=== PATIENT | female | born 1955 | race Caucasian/White ===

== ENCOUNTER 2016-05-21 11:52 | Emergency (ER) | payer BC, MEDICARE ==
[2016-05-21 12:22] VITALS: BP 144/83
[2016-05-21] MEDS ORDERED: Albuterol 0.083% 2.5 MG/3 ML Neb Soln NEB ONE (12:48)
--- NOTE | 2016-05-21 12:49 | EDM.PDOC ---
ED HPI GENERAL MEDICAL PROBLEM - General Chief Complaint: General Stated Complaint: LUNGS FULL,HEADACHE Time Seen by Provider: 05/21/16 12:49 Source of Information: Reports: Patient History Limitations: Reports: No limitations - History of Present Illness INITIAL COMMENTS - FREE TEXT/NARRATIVE: pt arrived feeling sob and coughing up some morales to green sputum. Onset: gradual Duration: Day(s):, Getting worse, Other ( feeling sob) Location: Reports: chest Associated Symptoms: Reports: cough, loss of appetite, shortness of breath - Related Data Allergies Allergy/AdvReac Type Severity Reaction Status Date / Time erythromycin base Allergy Vomiting Verified 05/21/16 12:12 morphine Allergy Vomiting Verified 05/21/16 12:12 pregabalin [From Lyrica] Allergy Confusion Verified 05/21/16 12:12 Sulfa (Sulfonamide Allergy Vomiting Verified 05/21/16 12:12 Antibiotics) Home Meds: Home Meds Aspirin [Halfprin] 1 tab PO DAILY 05/21/16 [History] Fluticasone Propionate [Flonase] 2 spray KAMLA BID 05/21/16 [History] Hydrocodone/Acetaminophen [Hydrocodon-Acetaminophen 5-325] 2 tab PO Q6H [History] LORazepam [Ativan] 1 tab PO DAILY PRN 05/21/16 [History] LORazepam [Ativan] 2 tab PO BEDTIME 05/21/16 [History] Metoprolol Tartrate [Metoprolol Tartrate] 1 tab PO BID 05/21/16 [History] Omeprazole 1 tab PO BID 05/21/16 [History] Sertraline HCl [Zoloft] 200 mg PO QAM 05/21/16 [History] clonazePAM [Clonazepam] 1 mg PO TID 05/21/16 [History] Past Medical History HEENT History: Reports: Allergic rhinitis Cardiovascular History: Reports: Hypertension Genitourinary History: Reports: UTI, recurrent Musculoskeletal History: Reports: Back pain, chronic, Fracture, Fibromyalgia Psychiatric History: Reports: Anxiety, Depression Dermatologic History: Reports: Psoriasis - Past Surgical History HEENT Surgical History: Reports: Tonsillectomy GI Surgical History: Reports: Appendectomy, Lysis of adhesions Female Surgical History: Reports: Hysterectomy Social & Family History - Tobacco Use Smoking Status *Q: Current Every Day Smoker Years of Tobacco use: 42 Packs/Tins Daily: 1 Second Hand Smoke Exposure: Yes - Caffeine Use Caffeine Use: Reports: Coffee - Recreational Drug Use Recreational Drug Use: No ED ROS GENERAL - Review of Systems Review Of Systems: See Below Constitutional: Reports: chills, malaise, weakness HEENT: Reports: Sinus problem Respiratory: Reports: Shortness of Breath, Cough Cardiovascular: Reports: No symptoms Endocrine: Reports: no symptoms GI/Abdominal: Reports: No symptoms : Reports: no symptoms Musculoskeletal: Reports: no symptoms Skin: Reports: no symptoms Neurological: Reports: No Symptoms Psychiatric: Reports: No symptoms ED EXAM, GENERAL - Physical Exam Exam: See Below Free Text/Narrative:: pt arrived feeling sob and coughing up thick mucous that is colored. Exam Limited By: No limitations General Appearance: mild distress Ears: normal TMs Nose: normal inspection Throat/Mouth: Normal inspection Head: atraumatic Neck: normal inspection Respiratory/Chest: decreased breath sounds, rhonchi Cardiovascular: regular rate, rhythm, tachycardia GI/Abdominal: soft, non tender (Female) Exam: Deferred Rectal (Female) Exam: Deferred Back Exam: normal inspection Extremities: normal inspection Neurological: alert, oriented Psychiatric: normal affect, anxious Course - Vital Signs Last Recorded V/S: Last Vital Signs Temp 37.4 C 05/21/16 12:33 Pulse 101 H 05/21/16 12:33 Resp 16 05/21/16 12:21 BP 144/83 H 05/21/16 12:33 Pulse Ox 97 05/21/16 12:33 - Orders/Labs/Meds Labs: Laboratory Tests 05/21/16 05/21/16 05/21/16 Range/Units 12:57 12:57 12:57 WBC 10.8 (4.5-11.0) K/uL RBC 4.74 (3.30-5.50) M/uL Hgb 14.0 (12.0-15.0) g/dL Hct 42.0 (36.0-48.0) % MCV 89 (80-98) fL MCH 30 (27-31) pg MCHC 33 (32-36) % Plt Count 465 H (150-400) K/uL Neut % (Auto) 58 (36-66) % Lymph % (Auto) 33 (24-44) % [place] % (Auto) 7 H (2-6) % Eos % (Auto) 1 L (2-4) % Baso % (Auto) 1 (0-1) % Sodium 139 L (140-148) mmol/L Potassium 5.0 (3.6-5.2) mmol/L Chloride 102 (100-108) mmol/L Carbon Dioxide 29 (21-32) mmol/L Anion Gap 13.0 (5.0-14.0) mmol/L BUN 9 (7-18) mg/dL Creatinine 0.8 (0.6-1.0) mg/dL Est Cr Clr Drug Dosing 58.99 mL/min Estimated GFR (MDRD) > 60 (>60) Glucose 116 H (74-106) mg/dL Calcium 9.2 (8.5-10.1) mg/dL Total Bilirubin 0.2 (0.2-1.0) mg/dL AST 17 (15-37) U/L ALT 21 (12-78) U/L Alkaline Phosphatase 70 (46-116) U/L C-Reactive Protein 1.96 H (0.0-0.3) mg/dL Total Protein 7.9 (6.4-8.2) g/dL Albumin 3.2 L (3.4-5.0) g/dL Globulin 4.7 H (2.3-3.5) g/dL Albumin/Globulin Ratio 0.7 L (1.2-2.2) Urine Color Urine Appearance Urine pH (4.5-8.0) Ur Specific [place] (1.008-1.030) Urine Protein (NEGATIVE) mg/dL Urine Glucose (UA) (NEGATIVE) mg/dL Urine Ketones (NEGATIVE) mg/dL Urine Occult Blood (NEGATIVE) Urine Nitrite (NEGATIVE) Urine Bilirubin (NEGATIVE) Urine Urobilinogen (NORMAL) mg/dL Ur Leukocyte Esterase (NEGATIVE) Urine RBC (0-5) Urine WBC (0-5) Ur Epithelial Cells Amorphous Sediment Urine Bacteria Urine Mucus 05/21/16 Range/Units 13:34 WBC (4.5-11.0) K/uL RBC (3.30-5.50) M/uL Hgb (12.0-15.0) g/dL Hct (36.0-48.0) % MCV (80-98) fL MCH (27-31) pg MCHC (32-36) % Plt Count (150-400) K/uL Neut % (Auto) (36-66) % Lymph % (Auto) (24-44) % [place] % (Auto) (2-6) % Eos % (Auto) (2-4) % Baso % (Auto) (0-1) % Sodium (140-148) mmol/L Potassium (3.6-5.2) mmol/L Chloride (100-108) mmol/L Carbon Dioxide (21-32) mmol/L Anion Gap (5.0-14.0) mmol/L BUN (7-18) mg/dL Creatinine (0.6-1.0) mg/dL Est Cr Clr Drug Dosing mL/min Estimated GFR (MDRD) (>60) Glucose (74-106) mg/dL Calcium (8.5-10.1) mg/dL Total Bilirubin (0.2-1.0) mg/dL AST (15-37) U/L ALT (12-78) U/L Alkaline Phosphatase (46-116) U/L C-Reactive Protein (0.0-0.3) mg/dL Total Protein (6.4-8.2) g/dL Albumin (3.4-5.0) g/dL Globulin (2.3-3.5) g/dL Albumin/Globulin Ratio (1.2-2.2) Urine Color Yellow Urine Appearance Turbid Urine pH 8.0 (4.5-8.0) Ur Specific [place] 1.010 (1.008-1.030) Urine Protein Negative (NEGATIVE) mg/dL Urine Glucose (UA) Normal (NEGATIVE) mg/dL Urine Ketones Negative (NEGATIVE) mg/dL Urine Occult Blood Negative (NEGATIVE) Urine Nitrite Positive H (NEGATIVE) Urine Bilirubin Negative (NEGATIVE) Urine Urobilinogen Normal (NORMAL) mg/dL Ur Leukocyte Esterase Negative (NEGATIVE) Urine RBC Not seen (0-5) Urine WBC 0-5 (0-5) Ur Epithelial Cells Rare Amorphous Sediment Not seen Urine Bacteria Many Urine Mucus Not seen Meds: Medications Discontinued Medications Generic Name Dose Route Start Last Admin Trade Name Freq PRN Reason Stop Dose Admin Albuterol 2.5 mg 05/21/16 12:48 05/21/16 13:33 Proventil Neb Soln NEB 05/21/16 12:49 2.5 mg ONETIME ONE Administration - Re-Assessments/Exams Free Text/Narrative Re-Assessment/Exam: 05/21/16 13:42 pt has been sob and coughing alot. She is raising thick green sputum. 05/24/16 11:31 Her chest xray does not reveal a infiltrate. Her wbc was not significantly elevated. Her sputum did look quite purulent. This was cultured. Departure - Departure Time of Disposition: 13:43 Disposition: Home, Self-Care 01 Condition: fair Clinical Impression: Bronchitis Instructions: Acute Bronchitis Referrals: PCP,None [Primary Care Provider] - Forms: ED Department Discharge Care Plan Goals: will notify of sputum culture, push fluids, cool mist humidifier, work with smoking cessation, augmentin 875 bid, albuterol inhaler 2 puffs q6h, cont with polinaitussin dm for the cough.
--- NOTE | 2016-05-21 14:06 | CR ---
The visualized sinuses appear clear.
--- NOTE | 2016-05-21 14:10 | CR ---
Chest 2V HISTORY: No Clinical Info FINDINGS: Heart size within normal limits. Pulmonary vasculature within normal limits. No evidence f or focal consolidation or cardiopulmonary process. IMPRESSION: No radiographic evidence for acute cardiopulmonary process.
== END 2016-05-21 14:04 | disposition home or self-care (01) ==
LOC: JP.ED 11:52
DX: J40 Bronchitis, not specified as acute or chronic (principal); I10 Essential (primary) hypertension; Z87.440 Personal history of urinary (tract) infections; F41.9 Anxiety disorder, unspecified; F32.9 Major depressive disorder, single episode, unspecified; F17.210 Nicotine dependence, cigarettes, uncomplicated; Z98.890 Other specified postprocedural states; Z90.710 Acquired absence of both cervix and uterus; Z79.899 Other long term (current) drug therapy; Z90.49 Acquired absence of other specified parts of digestive tract; Z88.5 Allergy status to narcotic agent; Z88.1 Allergy status to other antibiotic agents; Z88.2 Allergy status to sulfonamides; Z79.82 Long term (current) use of aspirin
CPT/HCPCS: 36415; 70210; 70210-26; 71020; 71020-26; 80053; 81001; 85025; 86140; 87070; 87077; 87186; 87205; 99283; 99285-25

== ENCOUNTER 2016-06-11 11:37 | Emergency (ER) | payer MEDICARE ==
[2016-06-11 12:15] VITALS: BP 125/89
--- NOTE | 2016-06-11 12:36 | EDM.PDOC ---
ED HISTORY OF PRESENT ILLNESS - General Chief Complaint: Respiratory Problem Stated Complaint: breathing issues Time Seen by Provider: 06/11/16 12:18 Source: Reports: Patient, Old records, RN notes reviewed History Limitations: Reports: No limitations - History of Present Illness INITIAL COMMENTS - FREE TEXT/NARRATIVE: 60-year-old female presents emergency department day complaint of shortness of breath and cough she does produce sputum last sputum culture approximately 2 weeks ago demonstrated Escherichia coli, Klebsiella and Haemophilus. She states she felt better for a couple days and then her symptoms returned with shortness of breath sputum production and low-grade fevers she has not followed up with her primary care provider - Related Data Allergies/ADRs: Allergies Allergy/AdvReac Type Severity Reaction Status Date / Time erythromycin base Allergy Vomiting Verified 06/11/16 12:07 morphine Allergy Vomiting Verified 06/11/16 12:07 pregabalin [From Lyrica] Allergy Confusion Verified 06/11/16 12:07 Sulfa (Sulfonamide Allergy Vomiting Verified 06/11/16 12:07 Antibiotics) Home Meds: Home Meds Aspirin [Halfprin] 1 tab PO DAILY 05/21/16 [History] Fluticasone Propionate [Flonase] 2 spray KAMLA BID 05/21/16 [History] Hydrocodone/Acetaminophen [Hydrocodon-Acetaminophen 5-325] 2 tab PO Q6H [History] LORazepam [Ativan] 1 tab PO DAILY PRN 05/21/16 [History] LORazepam [Ativan] 2 tab PO BEDTIME 05/21/16 [History] Metoprolol Tartrate [Metoprolol Tartrate] 1 tab PO BID 05/21/16 [History] Omeprazole 1 tab PO BID 05/21/16 [History] Sertraline HCl [Zoloft] 200 mg PO QAM 05/21/16 [History] clonazePAM [Clonazepam] 1 mg PO TID 05/21/16 [History] Past Medical History HEENT History: Reports: Allergic rhinitis Cardiovascular History: Reports: Hypertension Genitourinary History: Reports: UTI, recurrent Musculoskeletal History: Reports: Back pain, chronic, Fracture, Fibromyalgia Psychiatric History: Reports: Anxiety, Depression Dermatologic History: Reports: Psoriasis - Past Surgical History HEENT Surgical History: Reports: Tonsillectomy Cardiovascular Surgical History: Reports: None GI Surgical History: Reports: Appendectomy, Lysis of adhesions Female Surgical History: Reports: Hysterectomy Social & Family History - Tobacco Use Smoking Status *Q: Current Every Day Smoker Years of Tobacco use: 40 Packs/Tins Daily: 0.5 Second Hand Smoke Exposure: Yes - Caffeine Use Caffeine Use: Reports: Coffee - Recreational Drug Use Recreational Drug Use: No ED ROS GENERAL - Review of Systems Review Of Systems: See Below Constitutional: Reports: fever, chills HEENT: Reports: No symptoms Respiratory: Reports: Shortness of Breath, Cough, Sputum Cardiovascular: Reports: No symptoms GI/Abdominal: Reports: No symptoms : Reports: no symptoms Musculoskeletal: Reports: no symptoms Skin: Reports: no symptoms ED EXAM, GENERAL - Physical Exam Exam: See Below Free Text/Narrative:: General: Female, not in any distress, alert and oriented x3 HEENT: head is atraumatic normocephalic, eyes pupils equal round reactive to light, sclera clear no conjunctivitis appreciated. Ears tympanic membranes clear and morales landmarks and light reflex are present bilaterally canals are clear. Nose no septal deviation, nares are clear, no blood present. Mouth mucosa is moist and pink no erythema or exudate noted in soft palate, tongue is midline uvula is midline, dentition is intact. Neck: Supple no thyromegaly no tracheal deviation. Nodes: Cervical nodes subclavicular nodes nontender no palpable lymphadenopathy noted. Lungs: Breath sounds are distant I don't appreciate any adventitious noises CV: Regular rate and rhythm S1 and S2 appreciated no murmurs rubs or gallops noted. Abdomen: Soft, nontender, no palpable masses or organomegaly appreciated, no distention no guarding bowel sounds are present, . Neuro: Cranial nerves II through XII grossly intact Course - Vital Signs Last Recorded V/S: Last Vital Signs Temp 99.0 F 06/11/16 12:12 Pulse 97 06/11/16 12:12 Resp 16 06/11/16 12:12 BP 125/89 06/11/16 12:12 Pulse Ox 93 L 06/11/16 12:12 - Orders/Labs/Meds Labs: Laboratory Tests 06/11/16 06/11/16 06/11/16 Range/Units 12:38 12:38 12:38 WBC 11.4 H (4.5-11.0) K/uL RBC 5.03 (3.30-5.50) M/uL Hgb 14.9 (12.0-15.0) g/dL Hct 44.2 (36.0-48.0) % MCV 88 (80-98) fL MCH 30 (27-31) pg MCHC 34 (32-36) % Plt Count 380 (150-400) K/uL Neut % (Auto) 63 (36-66) % Lymph % (Auto) 27 (24-44) % [place] % (Auto) 8 H (2-6) % Eos % (Auto) 1 L (2-4) % Baso % (Auto) 1 (0-1) % ESR 41 H (0-25) mm/hr Sodium 138 L (140-148) mmol/L Potassium 4.4 (3.6-5.2) mmol/L Chloride 102 (100-108) mmol/L Carbon Dioxide 26 (21-32) mmol/L Anion Gap 14.4 H (5.0-14.0) mmol/L BUN 7 (7-18) mg/dL Creatinine 0.8 (0.6-1.0) mg/dL Est Cr Clr Drug Dosing 59.25 mL/min Estimated GFR (MDRD) > 60 (>60) Glucose 122 H (74-106) mg/dL Lactic Acid (0.4-2.0) mmol/L Calcium 9.0 (8.5-10.1) mg/dL Total Bilirubin 0.2 (0.2-1.0) mg/dL AST 21 (15-37) U/L ALT 26 (12-78) U/L Alkaline Phosphatase 94 (46-116) U/L Troponin I < 0.017 (0.000-0.056) ng/mL Poe-Y-Cdrlhqgzthd Pept (5-125) pg/mL Total Protein 8.2 (6.4-8.2) g/dL Albumin 3.4 (3.4-5.0) g/dL Globulin 4.8 H (2.3-3.5) g/dL Albumin/Globulin Ratio 0.7 L (1.2-2.2) 06/11/16 06/11/16 Range/Units 12:38 12:38 WBC (4.5-11.0) K/uL RBC (3.30-5.50) M/uL Hgb (12.0-15.0) g/dL Hct (36.0-48.0) % MCV (80-98) fL MCH (27-31) pg MCHC (32-36) % Plt Count (150-400) K/uL Neut % (Auto) (36-66) % Lymph % (Auto) (24-44) % [place] % (Auto) (2-6) % Eos % (Auto) (2-4) % Baso % (Auto) (0-1) % ESR (0-25) mm/hr Sodium (140-148) mmol/L Potassium (3.6-5.2) mmol/L Chloride (100-108) mmol/L Carbon Dioxide (21-32) mmol/L Anion Gap (5.0-14.0) mmol/L BUN (7-18) mg/dL Creatinine (0.6-1.0) mg/dL Est Cr Clr Drug Dosing mL/min Estimated GFR (MDRD) (>60) Glucose (74-106) mg/dL Lactic Acid 1.3 (0.4-2.0) mmol/L Calcium (8.5-10.1) mg/dL Total Bilirubin (0.2-1.0) mg/dL AST (15-37) U/L ALT (12-78) U/L Alkaline Phosphatase (46-116) U/L Troponin I (0.000-0.056) ng/mL Pic-U-Hezfdirvhsg Pept 82 (5-125) pg/mL Total Protein (6.4-8.2) g/dL Albumin (3.4-5.0) g/dL Globulin (2.3-3.5) g/dL Albumin/Globulin Ratio (1.2-2.2) Departure - Departure Time of Disposition: 13:40 Disposition: Home, Self-Care 01 Condition: good Clinical Impression: Chronic bronchitis Qualifiers: Chronic bronchitis type: mucopurulent Qualified Code(s): J41.1 - Mucopurulent chronic bronchitis Forms: ED Department Discharge Additional Instructions: Take full course of antibiotics, take full course of prednisone, continue to use her albuterol previously prescribed, Please followup with your primary care provider in 5-7 days if not better, please call return to the emergency department with worsening of symptoms. - Assessment/Plan Plan: Assessment Acuity = [acute on chronic Site and laterality = bronchitis complicated by patient with known history of tobacco abuse and dependence Etiology = suspicious for underlying chronic obstructive pulmonary disease Manifestations = cough, sputum production Location of injury = home Lab values = WBC elevated at 11.4 consistent with a leukocytosis, sodium low at 138 consistent hyponatremia, troponin normal at 0.017 BNP normal at 82 CT scan of the chest demonstrates no call pneumonia however there is a 5 mm nodule located in the right lower lobe of unclear etiology which needs to be followed up in 6 months Plan I did review blood work and CT scan results with her because of suspicious underlying chronic obstructive pulmonary disease she has not had any spirometry done I am going to start her on doxycycline 100 mg by mouth twice a day x7 days , in combination with prednisone 20 mg once a day for 5 days follow up with primary care in 5-7 days for reevaluation Patient was in agreement with the plan all questions were answered, they were instructed to return to the emergency department or call for worsening symptoms. This note was dictated using [employer] voice recognition software please call with any questions.
--- NOTE | 2016-06-11 13:21 | CT ---
Chest wo Cont HISTORY: recurrent pulmonary infection Axial spiral noncontrasted CT scan of the chest was obtained along with coronal and MIP reconstructi ons. Comparison plain radiographs are dated 05/21/2016. FINDINGS: There is mild scarring posteriorly at the right apex. Remainder the chest is clear. No acu te infiltrate is identified. I see no significant emphysematous changes. No endobronchial lesion can be seen. Centered on axial image 51 and coronal image 54 there is a 5 mm noncalcified pulmonary nodule right lower lobe. No other pulmonary mass or nodule is seen. There is no hilar or mediastinal mass or adenopathy. Heart size is within normal limits. Mild athero sclerotic calcification can be seen in aortic arch. There is no pleural fluid or chest wall abnormal ity. Visualized upper abdominal structures are unremarkable. IMPRESSION: 1. No acute infiltrate or other acute chest abnormality is identified. Very mild patchy apical scarr ing is noted on the right. Atherosclerotic aorta is noted. 2. There is a 5 mm noncalcified pulmonary nodule right lower lobe. Follow-up is recommended as per F magalischner guidelines. Findings were discussed with Officer. In the emergency department at 1314 hours. Total DLP 272 mGycm
== END 2016-06-11 14:05 | disposition home or self-care (01) ==
LOC: JP.ED 11:37
DX: J41.1 Mucopurulent chronic bronchitis (principal); I10 Essential (primary) hypertension; F32.9 Major depressive disorder, single episode, unspecified; F41.9 Anxiety disorder, unspecified; F17.210 Nicotine dependence, cigarettes, uncomplicated; Z90.49 Acquired absence of other specified parts of digestive tract; Z90.710 Acquired absence of both cervix and uterus; Z79.82 Long term (current) use of aspirin; Z79.899 Other long term (current) drug therapy; Z88.1 Allergy status to other antibiotic agents; Z88.2 Allergy status to sulfonamides; Z88.5 Allergy status to narcotic agent; Z88.8 Allergy status to other drugs, medicaments and biological substances
CPT/HCPCS: 36415; 71250; 71250-26; 80053; 83605; 83880; 84484; 85025; 85651; 99283; 99285

== ENCOUNTER 2019-08-12 20:16 | Emergency (ER) | payer MEDICARE ==
[2019-08-12 20:44] VITALS: PULSE 81
[2019-08-12 20:56] VITALS: BP 178/99
--- NOTE | 2019-08-12 21:13 | EDM.PDOC ---
ED HPI GENERAL MEDICAL PROBLEM - General Chief Complaint: General Stated Complaint: FALL OFF LADDER Time Seen by Provider: 08/12/19 20:38 Source of Information: Reports: Patient History Limitations: Reports: No Limitations - History of Present Illness INITIAL COMMENTS - FREE TEXT/NARRATIVE: 63 yo male presents to ER after falling while replacing a light bulb and hitting her head on the sidewalk. She recalls the entire event, No LOC. she is not nauseated nor did she vomit following the injury. She has a mild headache. denies vision disturbance. generally healthy. no other injuries sustained in the fall Posterior Head Pain Score (Numeric/FACES): 5 - Related Data Allergies Allergy/AdvReac Type Severity Reaction Status Date / Time erythromycin base Allergy Vomiting Verified 08/12/19 20:44 morphine Allergy Vomiting Verified 08/12/19 20:44 pregabalin [From Lyrica] Allergy Confusion Verified 08/12/19 20:44 Sulfa (Sulfonamide Allergy Vomiting Verified 08/12/19 20:44 Antibiotics) Home Meds: Home Meds Aspirin [Halfprin] 1 tab PO DAILY 05/21/16 [History] Fluticasone Propionate [Flonase] 2 spray KAMLA BID 05/21/16 [History] LORazepam [Ativan] 1 tab PO DAILY PRN 05/21/16 [History] LORazepam [Ativan] 2 tab PO BEDTIME 05/21/16 [History] Metoprolol Tartrate 1 tab PO BID 05/21/16 [History] Omeprazole 1 tab PO BID 05/21/16 [History] Sertraline HCl [Zoloft] 200 mg PO QAM 05/21/16 [History] clonazePAM [Clonazepam] 1 mg PO TID 05/21/16 [History] Past Medical History HEENT History: Reports: Allergic Rhinitis Cardiovascular History: Reports: Hypertension Gastrointestinal History: Reports: None Genitourinary History: Reports: UTI, Recurrent Musculoskeletal History: Reports: Back Pain, Chronic, Fracture, Fibromyalgia Psychiatric History: Reports: Anxiety, Depression Dermatologic History: Reports: Psoriasis - Infectious Disease History Infectious Disease History: Reports: Chicken Pox, Measles - Past Surgical History GI Surgical History: Reports: Appendectomy, Lysis of Adhesions Social & Family History - Tobacco Use Smoking Status *Q: Current Every Day Smoker Years of Tobacco use: 45 Packs/Tins Daily: 1 Used Tobacco, but Quit: No Second Hand Smoke Exposure: Yes - Caffeine Use Caffeine Use: Reports: Coffee - Recreational Drug Use Recreational Drug Use: No ED ROS GENERAL - Review of Systems Review Of Systems: See Below Constitutional: Denies: Fever, Chills, Fatigue Respiratory: Denies: Shortness of Breath Cardiovascular: Denies: Chest Pain GI/Abdominal: Denies: Abdominal Pain, Diarrhea, Nausea, Vomiting ED EXAM, GENERAL - Physical Exam Exam: See Below Exam Limited By: No Limitations General Appearance: Alert, WD/WN, No Apparent Distress Eye Exam: Bilateral Eye: EOMI, PERRL Ears: Normal External Exam Throat/Mouth: Normal Inspection, Normal Lips, Normal Teeth, Normal Gums Head: Normocephalic, Other (edema to the area of inpact, abrasion) Neck: Normal Inspection, Supple, Non-Tender, Full Range of Motion. No: Lymphadenopathy (R), Lymphadenopathy (L) Respiratory/Chest: No Respiratory Distress, Lungs Clear, Normal Breath Sounds, No Accessory Muscle Use, Chest Non-Tender. No: Crackles, Rhonchi, Wheezing Cardiovascular: Normal Peripheral Pulses, Regular Rate, Rhythm, No Murmur Neurological: Alert, Oriented, CN II-XII Intact, Normal Cognition, Normal Gait, Normal Reflexes, No Motor/Sensory Deficits Psychiatric: Normal Affect, Normal Mood Skin Exam: Warm, Dry, Intact, Normal Color Course - Vital Signs Last Recorded V/S: Last Vital Signs Temp 36.7 C 08/12/19 20:43 Pulse 81 08/12/19 20:43 Resp 16 08/12/19 20:43 BP 178/99 H 08/12/19 20:43 Pulse Ox 97 08/12/19 20:43 Departure - Departure Time of Disposition: 21:10 Disposition: Home, Self-Care 01 Condition: Good Clinical Impression: Head injury Qualifiers: Encounter type: initial encounter Qualified Code(s): S09.90XA - Unspecified injury of head, initial encounter - Discharge Information *PRESCRIPTION DRUG MONITORING PROGRAM REVIEWED*: Not Applicable *COPY OF PRESCRIPTION DRUG MONITORING REPORT IN PATIENT CHERYL: Not Applicable Instructions: Head Injury, Adult Referrals: Valerio Jorgensen MD [Primary Care Provider] - Forms: ED Department Discharge Additional Instructions: ice to area of head that is painful over the next 2 days return to emergency room if you start vomiting, severe, headache, or become confused Tylenol for pain control Sepsis Event Note - Evaluation Sepsis Screening Result: No Definite Risk - Focused Exam Vital Signs: Vital Signs Temp Pulse Resp BP Pulse Ox 08/12/19 20:43 36.7 C 81 16 178/99 H 97 Date Exam was Performed: 08/12/19 Time Exam was Performed: 21:15
== END 2019-08-12 21:31 | disposition home or self-care (01) ==
LOC: JP.ED 20:16
DX: S00.01XA Abrasion of scalp, initial encounter (principal); I10 Essential (primary) hypertension; F41.9 Anxiety disorder, unspecified; F32.9 Major depressive disorder, single episode, unspecified; F17.210 Nicotine dependence, cigarettes, uncomplicated; Z88.1 Allergy status to other antibiotic agents; Z88.5 Allergy status to narcotic agent; Z88.8 Allergy status to other drugs, medicaments and biological substances; Z88.2 Allergy status to sulfonamides; Z79.82 Long term (current) use of aspirin; Z79.899 Other long term (current) drug therapy; W22.8XXA Striking against or struck by other objects, initial encounter
CPT/HCPCS: 99282; 99283